=== PATIENT | female | born 1985 | race Two or more races ===

== ENCOUNTER → 2017-12-20 | Outpatient (CLI) | payer OTHER | LOC: FIMAGING 09:07 | PROVIDERS: ATTEND Registered Nurse | DX: O92.29 Other disorders of breast associated with pregnancy and the puerperium (principal); Z3A.18 18 weeks gestation of pregnancy ==

== ENCOUNTER → 2018-01-09 | Outpatient (CLI) | payer OTHER | LOC: FIMAGING 07:50 | PROVIDERS: ATTEND Advanced Practice Midwife | DX: Z34.92 Encounter for supervision of normal pregnancy, unspecified, second trimester (principal); Z3A.21 21 weeks gestation of pregnancy ==

== ENCOUNTER 2018-05-30 13:45 | Observation (INO) | payer OTHER ==
--- NOTE | 2018-05-30 17:29 | PDGENHP ---
History and Physical History and Physical: [facility] HPI: Patient is a 32 yo G 1 @ 41.2 weeks ega who presents to L&D from the [facility] for extended monitoring after a non-reactive NST at the [place] today. She was monitored for 40 minutes without any passing accelerations - although no decels were noted. Her ASHLEY was 8 and she had reported some decreased activity yesterday. She reports good activity now and did have some lunch before she came here today. Her has been uncomplicated. She denies LOF or VB. EDC: 05/21/18 which is based on LMP: 08/14/17 . Review of Systems: Constitutional: Denies any fever, chills, or fatigue HEENT: denies any visual changes, difficulty swallowing, hearing loss Cardiovascular: Denies any chest pain, palpitations, leg swelling Respiratory: denies any cough, wheezing, or shortness of breathe GI: Denies any nausea, vomiting, diarrhea, constipation : denies any dysuria, urgency, frequency, vaginal bleeding Musculoskeletal: denies any muscle or bone pain Skin: denies any rashes Neuro: denies any headache, seizures, lightheadedness, dizziness, or loss of consciousness Psychiatric: denies any depression, anxiety, or SI/HI thoughts HISTORY: Previous OB history: none Past medical history: non- contributory Past surgical history: non - contributory Medications: PNV Allergies (list reaction): NKDA LABS: Rh: A neg ABS: Neg Rubella: Immune HbsAg: NR HIV: NR VDRL: NR 1hr: 72 GC: Neg Chlamydia: Neg Pap: Normal GBS: neg PHYSICAL EXAM: Constitutional: WNL, A&Ox3 Skin: pink, warm, dry HEENT: normocephalic atraumatic, supple Heart: RRR, no murmur Chest: CTA-B Abdomen: Soft, nontender, gravid SVE: ft/50/-2 ant/soft Extremities: sml edema, negative kiley's sign Neuro: grossly normal Psych: normal affect assessment: Reassuring FHTs, baseline 150s +accels, no decels, moderate variability Contractions: toco irregular mild contractions Assessment: 1) 32 yo G 1 with IUP@ 41.2 weeks ega 2) Extended monitoring after non-reactive NST - Beautifully reactive EFM ( Category 1) while here with very active baby 3) IOL offered - counseled re: risks benefits of IOL verses waiting for natural labor after 41 weeks - declines IOL at this time Plan: 1) Will d/c home with labor precautions and strict kick count instructions - to call with any decreased movement. 2) Follow up at center tomorrow for NST and to discuss POC 3) Patient verbalizes understanding of POC
== END 2018-05-30 16:15 | disposition home or self-care (01) ==
LOC: FLD 13:45
PROVIDERS: ADMIT Advanced Practice Midwife; ATTEND Advanced Practice Midwife
DX: Z03.79 Encounter for other suspected maternal and fetal conditions ruled out (principal); O48.0 Post-term pregnancy; Z3A.41 41 weeks gestation of pregnancy

== ENCOUNTER 2018-06-03 06:27 | Inpatient (IN) | payer OTHER ==
[2018-06-03] MEDS: LR 1,000 ML IV PRN ×3 (07:00→20:08)
[2018-06-03] MEDS ORDERED: AMMONIA AROMATIC 1 EACH AMP IH PRN (07:35)
[2018-06-03] MEDS ORDERED: MISOPROSTOL 200 MCG TAB PO PRN (07:35)
[2018-06-03] MEDS ORDERED: LIDOCAINE 1% 300 MG/30 ML SDV SC PRN (07:35)
[2018-06-03] MEDS ORDERED: OXYTOCIN/RINGERS LACTATE 1,000 ML IV PRN (07:35)
[2018-06-03] MEDS ORDERED: IBUPROFEN 600 MG TAB PO PRN (07:35)
[2018-06-03] MEDS ORDERED: TERBUTALINE SULFATE 1 MG/ML VIAL IV PRN (07:35)
[2018-06-03] MEDS ORDERED: EPSOM SALT 454 GM TP PRN (07:35)
[2018-06-03] MEDS ORDERED: OLIVE OIL 118 ML BTL MISC PRN (07:35)
[2018-06-03] MEDS ORDERED: PROMETHAZINE HCL 25 MG/ML INJ IVP ONE (07:46)
--- NOTE | 2018-06-03 08:05 | PDGENHP ---
History and Physical History and Physical: Care: [facility] HPI: Raegan Smallwood is a 32yoweeks that presents to L&D from [facility] with complaints of contractions over the last 2 days. She has not been able to rest. states she feels tired and needs to sleep. She denies any LOF, VB. She reports +FM, Her CNM , Yanira Serna, is present with her. FOB- Danilo is also @ BS. EDC: 05/22/2018 which is based on LMP which is known and consistent with Ultrasound at 13 weeks. Her is complicated by: rh negative Review of Systems: Constitutional: Denies any fever, chills, or fatigue HEENT: denies any visual changes, difficulty swallowing, hearing loss Cardiovascular: Denies any chest pain, palpitations, leg swelling Respiratory: denies any cough, wheezing, or shortness of breathe GI: Denies any nausea, vomiting, diarrhea, constipation : denies any dysuria, urgency, frequency, vaginal bleeding Musculoskeletal: denies any muscle or bone pain Skin: denies any rashes Neuro: denies any headache, seizures, lightheadedness, dizziness, or loss of consciousness Psychiatric: denies any depression, anxiety, or SI/HI thoughts HISTORY: Previous OB history: G1 Past medical history: seasonal allergies Past surgical history: hernia repair 2004 Social: Denies any alcohol, tobacco, or drug use. , Dnailo. Family history: Not relevant Medications: PNV, flonase PRN Allergies (list reaction): NKDA LABS: Rh: A Neg ABS: Neg Rubella: Immune HbsAg: NR HIV: NR VDRL: NR 1hr: 72 GC: Neg Chlamydia: Neg Pap: Normal GBS: negative PHYSICAL EXAM: Constitutional: WN, A&Ox3 HEENT: normocephalic atraumatic, supple Skin: Warm, dry, intact Heart: RRR, no murmur Chest: CTA-B Abdomen: Soft, nontender, gravid SVE: deferred Extremities: no edema, negative homans sign Neuro: grossly normal Psych: normal affect assessment: FHT baseline 135 +accels, no decels, moderate variability Contractions: toco q 6 Assessment: * 32yo with IUP@ 41-6wks * prodromal labor * GBS Negative * cat 1 FHR tracing Plan: * admit to L&D * therapeutic rest * reassess 6hr/PRN Today's visit was approximately 30 min, of which >50% of visit 20 min, was spent face to face with pt on direct counseling/coordination of care.
[2018-06-03 08:28] LABS: PLATELET COUNT 235 10^3/uL (150-400)
[2018-06-03] MEDS ORDERED: OLIVE OIL 118 ML BTL MISC ONE (10:27)
[2018-06-03] MEDS ORDERED: LIDOCAINE 1% 300 MG/30 ML SDV ONE (10:27)
[2018-06-03] MEDS ORDERED: MISOPROSTOL 200 MCG TAB ONE (10:28)
[2018-06-03] MEDS ORDERED: TERBUTALINE SULFATE 1 MG/ML VIAL ONE (10:28)
[2018-06-03] MEDS ORDERED: AMMONIA AROMATIC 1 EACH AMP IH ONE (10:28)
[2018-06-03] MEDS ORDERED: OXYTOCIN 10 UNIT/ML VIAL ONE (10:28)
--- NOTE | 2018-06-03 12:00 | OBPROG ---
Labor Progress Note Assessment/Plan: Assessment: 32yo with IUP@ 41-6wks early labor GBS Negative cat 1 FHR tracing Plan: hydrotherapy [place] if pt desires reassess 2hr/PRN 06/03/18 11:57 Subjective/Intrapartum Course: 06/03/18 11:58 PT was able to sleep approx 3 hours after morphine. She is now breathing through contractions. Desires hydrotherapy at this time, though she is open to [place]. Danilo is @ BS, supportive. Objective: 06/03/18 06:40 Patient ABO/Rh A NEGATIVE 06/03/18 06:40 - SVE Dilation (cm): 3 Effacement (%): 80 Station: -2 - Contraction Pattern Assessment Current Contraction Pattern: Regular (q 6-10) - FHR Assessment Hay FHR (bpm): 135 FHR Pattern Variability: Minimal FHR Category: 2 Oxytocin Orders Assessment - Pre-Induction/Augmentation Assessment Gestational Age: 41 week(s) and 6 day(s) ICD10 Worksheet Patient Problems: Problems Problem Status Onset Labor and delivery, indication for care Acute Post-dates Acute - ICD10 Problem Qualifiers (1) Post-dates (2) Labor and delivery, indication for care
[2018-06-03] MEDS ORDERED: LR 500 ML IV PRN (15:54)
--- NOTE | 2018-06-03 15:54 | OBPROG ---
Labor Progress Note Assessment/Plan: Assessment: 32yo with IUP@ 41-6wks early labor GBS Negative cat 1 FHR tracing Plan: pain management PRN start pitocin augmentation at this time AROM when able reassess 2-4hr/PRN Subjective/Intrapartum Course: 06/03/18 11:58 PT was able to sleep approx 3 hours after morphine. She is now breathing through contractions. Desires hydrotherapy at this time, though she is open to [place]. Danilo is @ BS, supportive. 06/03/18 15:53 Pt was able to rest some more, now reports contractions spaced out. she denies any LOF, VB. She is agreeable to pitocin at this time. Objective: 06/03/18 06:40 Patient ABO/Rh A NEGATIVE 06/03/18 06:40 - SVE Dilation (cm): 3 Effacement (%): 80 Station: -2 - Contraction Pattern Assessment Current Contraction Pattern: Regular (q 6-10) - FHR Assessment Hay FHR (bpm): 140 FHR Category: 1 Oxytocin Orders Assessment - Pre-Induction/Augmentation Assessment Gestational Age: 41 week(s) and 6 day(s) ICD10 Worksheet Patient Problems: Problems Problem Status Onset Labor and delivery, indication for care Acute Post-dates Acute - ICD10 Problem Qualifiers (1) Post-dates (2) Labor and delivery, indication for care
[2018-06-03] MEDS ORDERED: OXYTOCIN/RINGERS LACTATE 500 ML IV SCH (16:00)
--- NOTE | 2018-06-03 18:53 | OBPROG ---
Labor Progress Note Assessment/Plan: Assessment: 32yo with IUP@ 41-6wks early labor GBS Negative cat 1 FHR tracing SROM - MSF Plan: cont pitocin augmentation pain management PRN reassess 2-4hr/PRN Subjective/Intrapartum Course: 06/03/18 11:58 PT was able to sleep approx 3 hours after morphine. She is now breathing through contractions. Desires hydrotherapy at this time, though she is open to [place]. Danilo is @ BS, supportive. 06/03/18 15:53 Pt was able to rest some more, now reports contractions spaced out. she denies any LOF, VB. She is agreeable to pitocin at this time. 06/03/18 18:51 Pt doing well, she is using nitrous oxide at this time. She is on hands/knees. FOB @ BS, supportive Objective: 06/03/18 06:40 Patient ABO/Rh A NEGATIVE 06/03/18 06:40 - SVE Dilation (cm): 5 Effacement (%): 90 Station: -1 Membranes: SROM Amniotic Fluid Color: Meconium Stained - Contraction Pattern Assessment Current Contraction Pattern: Regular (q 6-10) - FHR Assessment Twin A FHR (bpm): 145 FHR Pattern Variability: Moderate Oxytocin Orders Assessment - Pre-Induction/Augmentation Assessment Gestational Age: 41 week(s) and 6 day(s) ICD10 Worksheet Patient Problems: Problems Problem Status Onset Labor and delivery, indication for care Acute Post-dates Acute - ICD10 Problem Qualifiers (1) Post-dates (2) Labor and delivery, indication for care
[2018-06-03 19:34] LABS: PLATELET COUNT 218 10^3/uL (150-400)
[2018-06-03] MEDS ORDERED: fentaNYL 200 MCG, BUPIVACAINE 0.5% 20 ML in NS 100 ML EP SCH (20:00)
--- NOTE | 2018-06-03 20:00 | PREANESOB ---
Obstetric Pre-Anesthesia Info - General Info Proposed Procedure: labor epidural : 1 Para: 0 ANTONIA: 05/21/18 Gestational Age: 41 week(s) and 6 day(s) - Info Status: Full Term - Labor Status Cervical Dilation per last OB SVE: 5 Station per last OB SVE: -1 Amniotic Fluid Color: Meconium Stained Indications for Labor Analgesia: Pain Control Labor Epidural: Proposed Anesthesia Allergies/Adverse Reactions: Allergy/AdvReac Type Severity Reaction Status Date / Time No Allergies [NKDA] Allergy Verified 05/30/18 14:46 Home Medications: Medication Instructions Recorded Fluticasone Nasal [Flonase Nasal 2 sprays NASAL DAILY 05/30/18 Burns (RX)] Herbals/Supplements -Info Only 1 ea PO DAILY 05/30/18 Vits96/Iron Fum/Folic 1 each PO 05/30/18 [ Tablet] Visit Medications: Generic Name Dose Route Start Last Admin Trade Name Freq PRN Reason Stop Dose Admin Ammonia (Aromatic Spirit) 1 each 06/03/18 07:35 Ammonia Aromatic IH 06/13/18 07:34 ONCE PRN Fainting Lactated Ringer's 1,000 mls @ 0 mls/hr 06/03/18 07:35 06/03/18 15:53 Lr IV 06/04/18 07:34 1,000 mls PRN PRN Administration SEE PROTOCOL CONDITIONS Protocol Per Protocol Oxytocin/Lactated Ringer's 1,000 mls @ 999 mls/hr 06/03/18 07:35 Pitocin 20 Units/Lr (Premix) IV PRN PRN Post bleeding Lactated Ringer's 500 mls @ 500 mls/hr 06/03/18 15:54 Lr IV 06/04/18 15:54 PRN PRN Maternal Hypotension Oxytocin/Lactated Ringer's 500 mls @ 0 mls/hr 06/03/18 16:00 06/03/18 16:06 Pitocin 30 Units/Lr (Premix) IV 11/30/18 15:59 500 mls CONT RICARDO Administration Protocol Per Protocol Fentanyl 200 mcg/ Bupivacaine 100 mls @ mls/hr 06/03/18 20:00 HCl 20 ml/ Sodium Chloride EP 06/13/18 19:59 CONT RICARDO As Directed Ibuprofen 600 mg 06/03/18 07:35 Motrin PO ONCE PRN post , pain Lidocaine HCl 300 mg 06/03/18 07:35 Lidocaine Hcl 1% SC 11/30/18 07:34 ONCE PRN episiotomy Magnesium Sulfate 454 gm 06/03/18 07:35 Epsom Salt TP 11/30/18 07:34 Q1H PRN perineal discomfort Misoprostol 800 - 1,000 mcg 06/03/18 07:35 Cytotec PO 11/30/18 07:34 ONCE PRN Vaginal Atony/Bleeding Buckner Oil 118 ml 06/03/18 07:35 Sweet Oil MISC 11/30/18 07:34 ONCE PRN perineal massage Terbutaline Sulfate 0.25 mg 06/03/18 07:35 Brethine IV 11/30/18 07:34 ONCE PRN Tachysystole Discontinued Medications Generic Name Dose Route Start Last Admin Trade Name Freq PRN Reason Stop Dose Admin Ammonia (Aromatic Spirit) Confirm 06/03/18 10:28 Ammonia Aromatic Administered 06/03/18 10:29 Dose 1 each IH .STK-MED ONE Lidocaine HCl Confirm 06/03/18 10:27 Lidocaine Hcl 1% Administered 06/03/18 10:28 Dose 300 mg .ROUTE .STK-MED ONE Misoprostol Confirm 06/03/18 10:28 Cytotec Administered 06/03/18 10:29 Dose 1,000 mcg .ROUTE .STK-MED ONE Morphine Sulfate 5 mg 06/03/18 07:45 Morphine IVP 06/03/18 07:46 ONCE ONE Morphine Sulfate 10 mg 06/03/18 07:45 06/03/18 08:23 Morphine IM 06/03/18 07:46 10 mg ONCE ONE Administration Morphine Sulfate 5 mg 06/03/18 08:15 06/03/18 08:21 Morphine IVP 06/03/18 08:16 5 mg ONCE ONE Administration Buckner Oil Confirm 06/03/18 10:27 Sweet Oil Administered 06/03/18 10:28 Dose 118 ml MISC .STK-MED ONE Oxytocin Confirm 06/03/18 10:28 Pitocin Administered 06/03/18 10:29 Dose 40 unit .ROUTE .STK-MED ONE Promethazine HCl 25 mg 06/03/18 07:46 06/03/18 08:24 Phenergan IVP 06/03/18 07:47 25 mg ONCE ONE Administration Terbutaline Sulfate Confirm 06/03/18 10:28 Brethine Administered 06/03/18 10:29 Dose 1 mg .ROUTE .STK-MED ONE - Vital Signs Height/Weight (Nursing): Height 167.64 cm Weight 75.75 kg - Focused Exam Neck exam: FROM Mallampati Score: Class 2 Mouth exam: normal dental/mouth exam Pulmonary: no respiratory distress, clear to auscultation Cardiovascular: regular rate and rhythym, no murmur, rub, or gallop Labs: 06/03/18 19:20 06/03/18 19:20 Patient ABO/Rh A NEGATIVE 06/03/18 06:40 Total Bilirubin 0.4 mg/dL (0.1-1.4) 06/03/18 19:20 AST 22 IU/L (14-46) 06/03/18 19:20 ALT 34 IU/L (9-52) 06/03/18 19:20 - Plan Consent Signed and on Chart: Yes Patient/Guardian Understands and Agrees to Plan: Yes
[2018-06-03] MEDS ORDERED: PHENYLEPHRINE HCL 100 MCG/ML SYR ONE (20:01)
[2018-06-03] MEDS ORDERED: NALOXONE HCL 0.4 MG/ML INJ IVP PRN (20:22)
[2018-06-03] MEDS ORDERED: ONDANSETRON 4 MG/2 ML VIAL IVP PRN (20:22)
[2018-06-03] MEDS ORDERED: PHENYLEPHRINE HCL 100 MCG/ML SYR IVP PRN (20:22)
[2018-06-03] MEDS ORDERED: LR 500 ML IV SCH (20:30)
[2018-06-03] MEDS ORDERED: fentaNYL 2MCG/ML/BUP 0.1% RTU 100 ML EP SCH (20:30)
[2018-06-03] MEDS: ACETAMINOPHEN 500 MG TAB PO SCH (21:16)
--- NOTE | 2018-06-03 21:54 | OBPROG ---
Labor Progress Note Assessment/Plan: Assessment: 32yo with IUP@ 41-6wks early labor GBS Negative cat 2 FHR tracing SROM - MSF chorioamnioitis Plan: amnioinfusion going starting abx / chorio tylenol 1000mg IVF bolus reassess 2hr/PRN Reviewed with Bernie River MD 06/03/18 21:51 Subjective/Intrapartum Course: 06/03/18 11:58 PT was able to sleep approx 3 hours after morphine. She is now breathing through contractions. Desires hydrotherapy at this time, though she is open to [place]. Danilo is @ BS, supportive. 06/03/18 15:53 Pt was able to rest some more, now reports contractions spaced out. she denies any LOF, VB. She is agreeable to pitocin at this time. 06/03/18 18:51 Pt doing well, she is using nitrous oxide at this time. She is on hands/knees. FOB @ BS, supportive 06/03/18 21:54 pt doing ok- feeling some intermittent pressure. Agreeable to amnioinfusion and tylenol. Discussed chorio dx- pt verbalizes understanding. Objective: 06/03/18 19:20 06/03/18 19:20 Patient ABO/Rh A NEGATIVE 06/03/18 06:40 Total Bilirubin 0.4 mg/dL (0.1-1.4) 06/03/18 19:20 AST 22 IU/L (14-46) 06/03/18 19:20 ALT 34 IU/L (9-52) 06/03/18 19:20 - SVE Dilation (cm): 8 Effacement (%): 90 Station: -1 Membranes: SROM Amniotic Fluid Color: Meconium Stained - Contraction Pattern Assessment Current Contraction Pattern: Regular (q 6-10) - FHR Assessment Hay FHR (bpm): 175 FHR Pattern Variability: Moderate FHR Category: 2 - Procedures Non-surgical Procedures: IUPC, Other (Specify) (amnioinfusion) Oxytocin Orders Assessment - Pre-Induction/Augmentation Assessment Gestational Age: 41 week(s) and 6 day(s) ICD10 Worksheet Patient Problems: Problems Problem Status Onset Labor and delivery, indication for care Acute Post-dates Acute - ICD10 Problem Qualifiers (1) Post-dates (2) Labor and delivery, indication for care
[2018-06-03] MEDS ORDERED: GENTAMICIN SULFATE IV ONE (22:00)
[2018-06-03] MEDS ORDERED: D5W IV ONE (22:00)
[2018-06-03] MEDS ORDERED: GENTAMICIN PHARMACY TO DOSE MISC SCH (22:00)
[2018-06-03] MEDS ORDERED: GENTAMICIN SULFATE 300 MG in D5W 100 ML IV SCH (22:00)
[2018-06-03] MEDS: AMPICILLIN SODIUM 2 GM in NS 100 ML IV SCH (22:22)
[2018-06-03] MEDS ORDERED: METHYLERGONOVINE MAL 0.2 MG/ML INJ ONE (23:16)
--- NOTE | 2018-06-04 03:26 | OBDEL ---
Info Type: Vaginal Presentation at Delivery: Vertex L&D Analgesia/Anesthesia Type: Epidural GBS+: No Intrapartum Medications: Generic Name Dose Route Start Last Admin Trade Name Luis Alberto PRN Reason Stop Dose Admin Acetaminophen 1,000 mg 06/03/18 22:00 06/03/18 21:16 Tylenol PO 11/30/18 21:59 1,000 mg Q8HRS RICARDO Administration Lactated Ringer's 1,000 mls @ 0 mls/hr 06/03/18 07:35 06/03/18 20:08 Lr IV 06/04/18 07:34 1,000 mls PRN PRN Administration SEE PROTOCOL CONDITIONS Protocol Per Protocol Oxytocin/Lactated Ringer's 500 mls @ 0 mls/hr 06/03/18 16:00 06/03/18 16:06 Pitocin 30 Units/Lr (Premix) IV 11/30/18 15:59 500 mls CONT RICARDO Administration Protocol Per Protocol Ampicillin Sodium 2 gm/ Sodium 100 mls @ 200 mls/hr 06/03/18 22:00 06/03/18 22:22 Chloride IV 07/03/18 21:59 100 mls Q6H RICARDO Administration Protocol Gentamicin Sulfate 300 mg/ 107.5 mls @ 107.5 mls/hr 06/03/18 22:00 06/03/18 22:55 Dextrose IV 07/03/18 21:59 107.5 mls Q24H RICARDO Administration Discontinued Medications Generic Name Dose Route Start Last Admin Trade Name Luis Alberto PRN Reason Stop Dose Admin Ibuprofen 600 mg 06/03/18 07:35 06/04/18 03:09 Motrin PO 600 mg ONCE PRN Administration post , pain Morphine Sulfate 10 mg 06/03/18 07:45 06/03/18 08:23 Morphine IM 06/03/18 07:46 10 mg ONCE ONE Administration Morphine Sulfate 5 mg 06/03/18 08:15 06/03/18 08:21 Morphine IVP 06/03/18 08:16 5 mg ONCE ONE Administration Promethazine HCl 25 mg 06/03/18 07:46 06/03/18 08:24 Phenergan IVP 06/03/18 07:47 25 mg ONCE ONE Administration - Infant Care Provider Display Designer Outside/TOBACCO FLAVORER: Elizabeth Guan - Hospital Course Intrapartum: 06/03/18 11:58 PT was able to sleep approx 3 hours after morphine. She is now breathing through contractions. Desires hydrotherapy at this time, though she is open to [facility]. Danilo is @ BS, supportive. 06/03/18 15:53 Pt was able to rest some more, now reports contractions spaced out. she denies any LOF, VB. She is agreeable to pitocin at this time. 06/03/18 18:51 Pt doing well, she is using nitrous oxide at this time. She is on hands/knees. FOB @ BS, supportive 06/03/18 21:54 pt doing ok- feeling some intermittent pressure. Agreeable to amnioinfusion and tylenol. Discussed chorio dx- pt verbalizes understanding. Indications for Delivery: Spontaneous Labor, SROM, Postterm Favorable Cervix Vaginal Delivery - Delivery Provider Delivery Physician/CNM: Dinorah Menchaca - Labor and Delivery Onset of Contractions Date: 06/01/18 Onset of Contractions Time: 21:00 Onset of Contractions Type: Augmented Rupture of Membranes Date: 06/03/18 Rupture of Membranes Time: 17:25 Rupture of Membranes Type: Spontaneous Amniotic Fluid Color: Meconium Stained Dilation Complete Date: 06/04/18 Dilation Complete Time: 00:37 Placenta Delivery Date: 06/04/18 Placenta Delivery Time: 02:47 Total Hours of Labor: 53 Non-surgical Procedures: IUPC, Other (Specify) (amnioinfusion) Vaginal Sponge Count Correct: Yes Vaginal Needle Count Correct: Yes Vaginal Sweep Performed: Yes EBL: 200 Delivery Events: Nuchal Cord Delivery Comment: thick meconium, tachycardia- with recent dx of chorio- Bernie Valentinoroz, called to BS to evaluate for possible VAVD Pt was able to cont to push with good effort and baby boy delivered @0242 minimal respiratory effort, so cord was clamped x2 and cut and taken to warm for dry/stim/suction baby taken back to mothers chest. Cord Gases: Cord Gases Cord Blood PCO2 REJ 06/04/18 02:50 Cord Base Excess REJ 06/04/18 02:50 Cord ABG pH REJ 06/04/18 02:50 Cord VBG pH 7.23 (7.20-7.42) 06/04/18 02:50 - Medications Labor Augmentation/Induction Methods Used: Pitocin Labor Augmentation/Induction Indication: Inadequate Contraction Frequency, Inadequate Contraction Strength, Post Dates Operative Report - Delivery Cord Gases: Cord Gases Cord Blood PCO2 REJ 06/04/18 02:50 Cord Base Excess REJ 06/04/18 02:50 Cord ABG pH REJ 06/04/18 02:50 Cord VBG pH 7.23 (7.20-7.42) 06/04/18 02:50 [place] Data ANTONIA: 05/21/18 Gestational Age: 42 week(s) and 0 day(s) Hay Delivery Date: 06/04/18 Delivery Time: 02:42 Sex of : Male Score (1 Min): 7 Score (5 Min): 9 ICD10 Worksheet Patient Problems: Problems Problem Status Onset Labor and delivery, indication for care Acute Nuchal cord, single gestation Acute Post-dates Acute (spontaneous vaginal delivery) Acute Thick meconium stained amniotic fluid Acute - ICD10 Problem Qualifiers (1) Post-dates (2) Labor and delivery, indication for care (3) Thick meconium stained amniotic fluid (4) Nuchal cord, single gestation (5) (spontaneous vaginal delivery)
[2018-06-04] MEDS ORDERED: HYDROCORTISONE 0.5% CREAM TP PRN (03:28)
[2018-06-04] MEDS ORDERED: SIMETHICONE 80 MG TAB CHEW PO PRN (03:28)
[2018-06-04] MEDS: AMPICILLIN SODIUM 2 GM in NS 100 ML IV SCH (04:32)
[2018-06-04] MEDS: ACETAMINOPHEN 500 MG TAB PO SCH ×3 (06:35→22:03)
[2018-06-04] MEDS: IBUPROFEN 600 MG TAB PO PRN ×3 (09:22→21:54)
[2018-06-04] MEDS: DOCUSATE SODIUM 100 MG CAP PO PRN ×2 (09:23→21:54)
--- NOTE | 2018-06-04 11:29 | POSTANESTH ---
Post Anesthetic Evaluation Cardiovascular Status: Normal, Stable Respiratory Status: Normal, Stable Level of Consciousness/Mental Status: Can Participate in Eval Pain Control: Adequate, Prn Tx Ordered Nausea/Vomiting Control: Adequate, Prn Tx Ordered Complications Possibly Related to Anesthesia: None Noted
[2018-06-04] MEDS: FERROUS SULFATE 325 MG TAB PO SCH (16:08)
[2018-06-05] MEDS: IBUPROFEN 600 MG TAB PO PRN ×4 (04:09→21:49)
[2018-06-05] MEDS: ACETAMINOPHEN 500 MG TAB PO SCH ×3 (06:27→21:50)
[2018-06-05] MEDS: FERROUS SULFATE 325 MG TAB PO SCH (09:55)
--- NOTE | 2018-06-05 11:52 | OBPP ---
Progress Note Assessment/Plan: Assessment: 1. PP day 1 2. breast feeding difficulty 3. 4. chorioamnionitis Plan: 1. support 2. D/C home tomorrow 06/05/18 11:50 Subjective/ Course: 06/05/18 11:51 pt feeling well, tired, pain well controlled with PO medication. Bleeding WNL. Breast feeding difficulty. Objective: 06/03/18 19:20 06/03/18 19:20 Patient ABO/Rh A NEGATIVE 06/04/18 04:15 Total Bilirubin 0.4 mg/dL (0.1-1.4) 06/03/18 19:20 AST 22 IU/L (14-46) 06/03/18 19:20 ALT 34 IU/L (9-52) 06/03/18 19:20 Temp Pulse Resp BP Pulse Ox 36.3 C 66 14 124/79 H 94 06/05/18 08:00 06/05/18 08:00 06/05/18 08:00 06/05/18 08:00 06/05/18 08:00 VSS Uterine Position/Fundal Height: At Umbilicus Uterine Tone: Firm
[2018-06-06] MEDS: IBUPROFEN 600 MG TAB PO PRN ×2 (04:45→11:29)
[2018-06-06] MEDS: ACETAMINOPHEN 500 MG TAB PO SCH (06:02)
[2018-06-06 08:30] VITALS: BP 123/83
--- NOTE | 2018-06-06 10:10 | OBGCSDC ---
General Delivery Information - General Info : 1 Para: 1 Abortions: 0 Type: Vaginal L&D Analgesia/Anesthesia Type: Epidural, Nitrous Admission Date: 06/03/18 Labs: Patient ABO/Rh A NEGATIVE 06/04/18 04:15 Hct 35.8 % (38.0-47.0) L 06/03/18 19:20 - Hospital Course Intrapartum: 06/03/18 11:58 PT was able to sleep approx 3 hours after morphine. She is now breathing through contractions. Desires hydrotherapy at this time, though she is open to [facility]. Danilo is @ BS, supportive. 06/03/18 15:53 Pt was able to rest some more, now reports contractions spaced out. she denies any LOF, VB. She is agreeable to pitocin at this time. 06/03/18 18:51 Pt doing well, she is using nitrous oxide at this time. She is on hands/knees. FOB @ BS, supportive 06/03/18 21:54 pt doing ok- feeling some intermittent pressure. Agreeable to amnioinfusion and tylenol. Discussed chorio dx- pt verbalizes understanding. : 06/05/18 11:51 pt feeling well, tired, pain well controlled with PO medication. Bleeding WNL. Breast feeding difficulty. 06/06/18 10:09 No c/o. Breast feeding with minimal support. Pain well controlled. Plan d/c home today. Vaginal - Delivery Provider Delivery Physician/CNM: Dinorah Menchaca - Diagnosis Labor: Augmented Rupture of Membranes Type: Spontaneous Amniotic Fluid Color: Meconium Stained Delivery Events: Nuchal Cord - Procedures Non-surgical Procedures: IUPC, Other (Specify) (amnioinfusion) - Delivery Non-surgical Procedures: IUPC, Other (Specify) (amnioinfusion) EBL: 200 [place] Data ANTONIA: 05/21/18 Gestational Age: 42 week(s) and 2 day(s) Hay Delivery Date: 06/04/18 Delivery Time: 02:42 Sex of Infant: Male Weight (gm): 3135 g Score (1 Min): 7 Score (5 Min): 9 Discharge Information - Discharge Information Instruction/Follow Up: Two Weeks (f/u with center or [facility])
[2018-06-06] MEDS: FERROUS SULFATE 325 MG TAB PO SCH (11:05)
== END 2018-06-06 12:31 | disposition home or self-care (01) | DRG 805 ==
LOC: FLD 06:27 → FOB 06-04 05:40
PROVIDERS: ADMIT Advanced Practice Midwife; ATTEND Advanced Practice Midwife
PROC: 4A1J7BZ Monitoring of Products of Conception, Nervous Pressure, Via Natural or Artificial Opening (ICD-10-PCS; 2018-06-03)
PROC: 3E0E7GC Introduction of Other Therapeutic Substance into Products of Conception, Via Natural or Artificial Opening (ICD-10-PCS; 2018-06-03)
PROC: 10E0XZZ Delivery of Products of Conception, External Approach (ICD-10-PCS; principal; 2018-06-04)
DX: O48.0 Post-term pregnancy (principal); O41.1230 Chorioamnionitis, third trimester, not applicable or unspecified; Z3A.41 41 weeks gestation of pregnancy; Z37.0 Single live birth
CPT/HCPCS: J0290; J1580; J2210; J2270; J2370; J2550; J2590; J3010; J3105